=== PATIENT | female | born 1985 | race Caucasian/White ===

== ENCOUNTER 2016-10-11 00:02 | Emergency (ER) | payer SELFPAY ==
[~2016-10-11] VITALS: Wt 54.0 kg
[~2016-10-11 00:02] MED LIST: AMOXICILLIN200 MG PO; AMOXICILLIN500 MG PO; AMOXIL500 MG PO; ANAPROX DS550 MG PO; ATIVAN1 MG PO; AUGMENTIN 500 M1 TAB PO; AUGMENTIN 875875 MG PO; AVPAK AZITHROM250 M1 PO; BACTRIM DS 8001 TA1 PO; CIPRO250 MG PO; CIPROFLOXACIN500 MG PO; CLEOCIN150 MG PO; CLINDAMYCIN HC300 MG PO; DICLOFENAC POTA50 MG PO; DIFLUCAN150 MG PO; FLEXERIL10 MG PO; FLEXERIL5 MG PO; HYDROCODONE BIT1 T11 PO; HYDROXYZINE HCL25 MG PO; K-DUR 20MEQ20 MEQ PO; KETOROLAC10 MG PO; LIDEX 0.05% CRE15 GM T; MACROBID100 M1 PO; MEDROL DOSEPAK4 MG PO; MIRENA52 MG IU; MOTRIN600 MG PO; MOTRIN800 MG PO; MULTIPLE VITAM1 EACH PO; NAPROSYN500 MG PO; NEURONTIN100 MG PO; NKHM; NORCO 325 MG-101 TAB PO; PEN-VEE K500 MG PO; PENICILLIN-VK500 MG PO; PERIDEX118 ML MM; POTASSIUM CHLO10 ME4 PO; PREDNICOT20 MG PO; PRENTAL 1 PLUS1 TAB PO; PROZAC10 MG PO; PYRIDIUM200 M1 PO; TRAMADOL HCL50 MG PO; ULTRAM50 MG PO; VIBRAMYCIN100 MG PO; VICODIN 5/500 505 MG PO; ZITHROMAX250 MG PO; ZOFRAN2 MG/ML; ZOFRAN4 MG PO; ZOLOFT50 MG PO; Zofran4 MG PO
[2016-10-11 00:28] LABS: BILIRUBIN NEGATIVE (NEGATIVE); BLOOD TRACE-INTACT (NEGATIVE); CLARITY CLOUDY (CLEAR); COLOR YELLOW (YELLOW); GLUCOSE NEGATIVE (NEGATIVE); KETONE NEGATIVE (NEGATIVE); LEUKO ESTERASE NEGATIVE (NEGATIVE); NITRITE NEGATIVE (NEGATIVE); PH 5.5 (5.0-9.0); PROTEIN NEGATIVE (NEGATIVE); SPECIFIC GRAVITY 1.015 (1.005-1.030); UROBILINOGEN 0.2 E.U./dl (0.2-1.0)
[2016-10-11 00:32] LABS: BASO # 0.1 10*3/uL (0.0-0.1); BASO % 0.6 % (0.0-1.0); EOS # 0.4 10*3/uL (0.0-0.4); HEMATOCRIT 38.3 % (37.0-47.0); HEMOGLOBIN 13.1 g/dl (12.0-16.0); LYMPH % 33.7 % (27.0-41.0); MEAN CELL VOLUME 99.2 fl (81.0-99.0); MEAN CORPUSCULAR HGB 33.9 pg (27.0-31.0); MEAN CORPUSCULAR HGB CONC 34.2 g/dl (33.0-37.0); MEAN PLATELET VOLUME 8.5 fl (9.6-12.3); MONO # 0.5 10*3/uL (0.1-1.0); MONO % 5.7 % (3.0-9.0); NEUT % 55.8 % (47.0-73.0); PLATELET COUNT AUTOMATED 408 10*3/uL (130-400); RED BLOOD COUNT 3.86 10*6/uL (4.10-5.10); RED CELL DISTRI WIDTH 12.3 % (0-14.5); WHITE BLOOD COUNT 8.9 10*3/uL (4.8-10.8)
[2016-10-11 00:42] LABS: BACTERIA 1+; EPITHELIAL CELLS 0-2; URINE REFLEX COMMENT NO (NO); WBC 0-2 wbc/hpf (0-5)
[2016-10-11 00:49] LABS: ALKALINE PHOSPHATASE 55 U/L (45-117); BILIRUBIN, TOTAL 0.4 mg/dl (0.2-1.0); BUN 10 mg/dl (7-24); C-REACTIVE PROTEIN < 0.29 MG/DL (0-0.3); CARBON DIOXIDE 28 mmol/L (21-32); CHLORIDE 102 mmol/L (98-107); EST GLOM FILT AFRICAN AMERICAN > 60 ml/min; GLUCOSE 88 mg/dL (65-99); POTASSIUM 3.6 mmol/L (3.5-5.1); SGOT/AST 13 IU/L (3-35); SGPT/ALT 23 U/L (12-78); SODIUM 140 mmol/L (136-145); TOTAL PROTEIN 7.1 gm/dL (6.4-8.2)
[2016-10-11] MEDS ORDERED: VIBRAMYCIN100 MG PO (00:53)
== END 2016-10-11 01:14 | disposition home or self-care (01) ==
LOC: ED 00:02
PROVIDERS: Physician Assistant
DX: R10.2 Pelvic and perineal pain (principal); F17.200 Nicotine dependence, unspecified, uncomplicated

== ENCOUNTER 2017-01-03 23:34 | Emergency (ER) | payer SELFPAY ==
[~2017-01-03] VITALS: Ht 157.4 cm; Wt 55.8 kg
[2017-01-04] MEDS ORDERED: ZITHROMAX250 MG PO (00:04)
[2017-01-04] MEDS ORDERED: KETOROLAC10 MG PO (00:04)
[2017-01-04] MEDS ORDERED: ROBITUSSIN AC 110 ML PO (00:04)
== END 2017-01-04 00:29 | disposition home or self-care (01) ==
LOC: ED 23:34
DX: J40 Bronchitis, not specified as acute or chronic (principal); J32.9 Chronic sinusitis, unspecified; F17.200 Nicotine dependence, unspecified, uncomplicated

== ENCOUNTER 2017-02-27 16:22 | Emergency (ER) | payer SELFPAY ==
[~2017-02-27] VITALS: Ht 157.4 cm; Wt 55.8 kg
[~2017-02-27 16:22] MED LIST changes: +ROBITUSSIN AC 110 ML PO
== END 2017-02-27 16:53 | disposition home or self-care (01) ==
LOC: ED 16:22
DX: M25.531 Pain in right wrist (principal); F17.200 Nicotine dependence, unspecified, uncomplicated

== ENCOUNTER 2017-05-20 16:25 | Emergency (ER) | payer OTHER ==
[~2017-05-20] VITALS: Ht 157.4 cm; Wt 54.4 kg
--- NOTE | ~2017-05-20 | EKG ---
[place], [place] ELECTROCARDIOGRAM REPORT NAME: LIU BRYANT UNIT #: [id number] ROOM: DOCTOR: MARIA R ADAMSON MD BIRTHDATE: [birth year] DOS: 05/20/2017 TIME: 1728 hours. Normal sinus rhythm at 82 beats per minute. First-degree heart block. An abnormal ECG. No previous tracing is available for comparison. MARIA R ADAMSON MD CM:EKGRPT:ELECTROCARDIOGRAM REPORT [id number] MARIA R ADAMSON MD
[2017-05-20 17:26] LABS: BASO # 0.1 10*3/uL (0.0-0.1); BASO % 0.8 % (0.0-1.0); EOS # 0.8 10*3/uL (0.0-0.4); EOS % 8.9 % (1.0-4.0); HEMATOCRIT 38.1 % (37.0-47.0); HEMOGLOBIN 12.9 g/dl (12.0-16.0); LYMPH # 3.5 10*3/uL (1.3-4.4); LYMPH % 38.3 % (27.0-41.0); MEAN CELL VOLUME 100.8 fl (81.0-99.0); MEAN CORPUSCULAR HGB 34.1 pg (27.0-31.0); MEAN CORPUSCULAR HGB CONC 33.9 g/dl (33.0-37.0); MONO # 0.8 10*3/uL (0.1-1.0); MONO % 8.3 % (3.0-9.0); NEUT % 43.6 % (47.0-73.0); PLATELET COUNT AUTOMATED 386 10*3/uL (130-400); RED BLOOD COUNT 3.78 10*6/uL (4.10-5.10); RED CELL DISTRI WIDTH 12.2 % (0-14.5); WHITE BLOOD COUNT 9.1 10*3/uL (4.8-10.8)
[2017-05-20 17:44] LABS: ALBUMIN 3.7 gm/dl (3.1-4.5); ALKALINE PHOSPHATASE 47 U/L (45-117); BUN 14 mg/dl (7-24); CHLORIDE 107 mmol/L (98-107); CREATININE 0.49 mg/dL (0.55-1.02); LIPASE 243 U/L (73-393); POTASSIUM 3.8 mmol/L (3.5-5.1); SGOT/AST 17 IU/L (3-35); SGPT/ALT 28 U/L (12-78); SODIUM 140 mmol/L (136-145)
[2017-05-20 17:45] LABS: TROPONIN I < 0.015 ng/ml (<0.045)
[2017-05-20] MEDS ORDERED: NAPROSYN500 MG PO (20:09)
== END 2017-05-20 20:22 | disposition home or self-care (01) ==
LOC: ED 16:25
PROVIDERS: Physician Assistant
DX: R07.89 Other chest pain (principal); F17.200 Nicotine dependence, unspecified, uncomplicated; Z79.899 Other long term (current) drug therapy

== ENCOUNTER 2017-08-03 08:04 | Emergency (ER) | payer OTHER ==
[~2017-08-03] VITALS: Ht 157.4 cm; Wt 52.6 kg
[2017-08-03 08:55] LABS: BILIRUBIN NEGATIVE (NEGATIVE); BLOOD TRACE-LYSED (NEGATIVE); CLARITY SL CLOUDY (CLEAR); COLOR YELLOW (YELLOW); GLUCOSE NEGATIVE (NEGATIVE); KETONE NEGATIVE (NEGATIVE); LEUKO ESTERASE NEGATIVE (NEGATIVE); NITRITE NEGATIVE (NEGATIVE); PH 6.5 (5.0-9.0); SPECIFIC GRAVITY 1.015 (1.005-1.030); UROBILINOGEN 0.2 E.U./dl (0.2-1.0)
[2017-08-03 09:17] LABS: BACTERIA 1+; RBC 0-2 rbc/hpf (0-2); WBC 0-2 wbc/hpf (0-5)
[2017-08-03] MEDS ORDERED: PREDNISONE50 MG PO (09:30)
[2017-08-03] MEDS ORDERED: DOXYCYCLINE100 M3 PO (09:30)
== END 2017-08-03 09:37 | disposition home or self-care (01) ==
LOC: ED 08:04
PROVIDERS: Emergency Medicine
DX: J20.9 Acute bronchitis, unspecified (principal)

== ENCOUNTER 2017-10-09 11:48 | Emergency (ER) | payer OTHER ==
[~2017-10-09] VITALS: Wt 52.2 kg
[~2017-10-09 11:48] MED LIST changes: +DOXYCYCLINE100 M3 PO; +PREDNISONE50 MG PO
== END 2017-10-09 12:48 | disposition home or self-care (01) ==
LOC: ED 11:48
DX: S50.11XA Contusion of right forearm, initial encounter (principal); W22.8XXA Striking against or struck by other objects, initial encounter; Y93.89 Activity, other specified; Y92.89 Other specified places as the place of occurrence of the external cause; Y99.8 Other external cause status

== ENCOUNTER 2017-10-17 16:09 | Emergency (ER) | payer OTHER ==
[~2017-10-17] VITALS: Ht 157.4 cm; Wt 52.2 kg
[2017-10-17] MEDS ORDERED: PROZAC10 MG PO (16:11)
[2017-10-17] MEDS ORDERED: ABILIFY2 MG PO (16:11)
== END 2017-10-17 18:19 | disposition home or self-care (01) ==
LOC: ED 16:09
DX: M25.531 Pain in right wrist (principal); Z79.899 Other long term (current) drug therapy

== ENCOUNTER 2018-01-11 03:47 | Emergency (ER) | payer OTHER ==
[~2018-01-11] VITALS: Ht 157.4 cm; Wt 61.2 kg
[~2018-01-11 03:47] MED LIST changes: +ABILIFY2 MG PO; +CYCLOBENZAPRINE10 MG PO; +LIDOCAINE PAIN1 EACH T; +Motrin,Rufen800 MG PO; +Orphenadrine C100 MG PO; +PREDNISONE10 MG PO
[2018-01-11 04:02] LABS: BILIRUBIN NEGATIVE (NEGATIVE); BLOOD NEGATIVE (NEGATIVE); CLARITY CLEAR (CLEAR); COLOR YELLOW (YELLOW); GLUCOSE NEGATIVE (NEGATIVE); KETONE NEGATIVE (NEGATIVE); LEUKO ESTERASE NEGATIVE (NEGATIVE); NITRITE NEGATIVE (NEGATIVE); PH 7.5 (5.0-9.0); UROBILINOGEN 0.2 E.U./dl (0.2-1.0)
[2018-01-11 04:16] LABS: BASO # 0.1 10*3/uL (0.0-0.1); BASO % 0.7 % (0.0-1.0); EOS # 0.6 10*3/uL (0.0-0.4); EOS % 6.8 % (1.0-4.0); HEMATOCRIT 36.5 % (37.0-47.0); HEMOGLOBIN 12.4 g/dl (12.0-16.0); LYMPH # 3.4 10*3/uL (1.3-4.4); LYMPH % 39.1 % (27.0-41.0); MEAN CELL VOLUME 100.6 fl (81.0-99.0); MEAN CORPUSCULAR HGB 34.2 pg (27.0-31.0); MEAN PLATELET VOLUME 8.9 fl (9.6-12.3); MONO # 0.7 10*3/uL (0.1-1.0); MONO % 7.6 % (3.0-9.0); NEUT % 45.6 % (47.0-73.0); PLATELET COUNT AUTOMATED 438 10*3/uL (130-400); RED BLOOD COUNT 3.63 10*6/uL (4.10-5.10); RED CELL DISTRI WIDTH 12.3 % (0-14.5); WHITE BLOOD COUNT 8.8 10*3/uL (4.8-10.8)
[2018-01-11 04:17] LABS: BACTERIA 1+; EPITHELIAL CELLS 0-2
[2018-01-11 04:32] LABS: ALBUMIN 3.6 gm/dl (3.1-4.5); ALKALINE PHOSPHATASE 48 U/L (45-117); BUN 12 mg/dl (7-24); CHLORIDE 106 mmol/L (98-107); CREATININE 0.66 mg/dL (0.55-1.02); LIPASE 258 U/L (73-393); POTASSIUM 3.5 mmol/L (3.5-5.1); SGOT/AST 21 IU/L (3-35); SGPT/ALT 27 U/L (12-78); SODIUM 140 mmol/L (136-145)
[2018-01-11 04:35] LABS: B-hCG (QUALITATIVE) NEGATIVE (NEGATIVE)
[2018-01-11] MEDS ORDERED: ZOFRAN ODT4 MG SL (05:04)
[2018-01-11] MEDS ORDERED: MACROBID100 M1 PO (05:04)
[2018-01-11] MEDS ORDERED: PEPCID40 MG PO (05:04)
[2018-02-27] MEDS ORDERED: NAPROSYN500 MG PO (19:05)
== END 2018-01-11 05:20 | disposition home or self-care (01) ==
LOC: ED 03:47
PROVIDERS: Emergency Medicine
DX: N39.0 Urinary tract infection, site not specified (principal); K29.00 Acute gastritis without bleeding; R11.2 Nausea with vomiting, unspecified; Z79.899 Other long term (current) drug therapy

== ENCOUNTER 2018-05-15 16:46 | Emergency (ER) | payer OTHER ==
[~2018-05-15] VITALS: Wt 61.2 kg
--- NOTE | ~2018-05-15 | EKG ---
[place], [place] ELECTROCARDIOGRAM REPORT NAME: LIU BRYANT UNIT #: [id number] ROOM: DOCTOR: EPIPHANY DRAFT REPORT BIRTHDATE: [birth year] [facility] Test Date: 2018-05-15 Test Time: 17:26:09 Pat Name: LIU BRYANT Department: Room: Gender: F It Support Consultant: 17 : 1985 Requested By: YUMI AMEZQUITA DNP Order Number: [id number] Reading MD: Pranav Murray MD Measurements Intervals [place] Rate: 83 P: 42 MS: 216 QRS: 84 QRSD: 99 T: 26 QT: 351 QTc: 413 Interpretive Statements Sinus rhythm Prolonged MS interval Baseline wander in lead(s) V6 Electronically Signed On 05-16-2018 4:15:48 PST by Pranav Murray MD CM:EKGRPT:ELECTROCARDIOGRAM REPORT [id number] YUMI HANSEN DRAFT REPORT YUMI AMEZQUITA DNP
[~2018-05-15 16:46] MED LIST changes: +PEPCID40 MG PO; +ZOFRAN ODT4 MG SL
[2018-05-15 17:31] LABS: BASO # 0.1 10*3/uL (0.0-0.1); BASO % 0.4 % (0.0-1.0); EOS # 0.5 10*3/uL (0.0-0.4); EOS % 4.4 % (1.0-4.0); HEMATOCRIT 38.5 % (37.0-47.0); HEMOGLOBIN 13.4 g/dl (12.0-16.0); LYMPH # 2.7 10*3/uL (1.3-4.4); LYMPH % 23.6 % (27.0-41.0); MEAN CELL VOLUME 98.2 fl (81.0-99.0); MEAN CORPUSCULAR HGB 34.2 pg (27.0-31.0); MEAN CORPUSCULAR HGB CONC 34.8 g/dl (33.0-37.0); MEAN PLATELET VOLUME 9.2 fl (9.6-12.3); MONO # 0.8 10*3/uL (0.1-1.0); MONO % 7.1 % (3.0-9.0); NEUT # 7.2 10*3/uL (2.3-7.9); NEUT % 64.2 % (47.0-73.0); PLATELET COUNT AUTOMATED 398 10*3/uL (130-400); RED BLOOD COUNT 3.92 10*6/uL (4.10-5.10); RED CELL DISTRI WIDTH 11.9 % (0-14.5); WHITE BLOOD COUNT 11.3 10*3/uL (4.8-10.8)
[2018-05-15 17:46] LABS: ALBUMIN 3.6 gm/dl (3.1-4.5); ALKALINE PHOSPHATASE 46 U/L (45-117); BUN 12 mg/dl (7-24); CHLORIDE 111 mmol/L (98-107); CREATININE 0.54 mg/dL (0.55-1.02); POTASSIUM 3.3 mmol/L (3.5-5.1); SGOT/AST 11 IU/L (3-35); SGPT/ALT 16 U/L (12-78); SODIUM 141 mmol/L (136-145); TOTAL PROTEIN 6.7 gm/dL (6.4-8.2)
[2018-05-15] MEDS ORDERED: ZOFRAN4 MG PO (18:26)
== END 2018-05-15 18:27 | disposition home or self-care (01) ==
LOC: ED 16:46
PROVIDERS: Nurse Practitioner Family
DX: J06.9 Acute upper respiratory infection, unspecified (principal); K52.9 Noninfective gastroenteritis and colitis, unspecified; Z79.899 Other long term (current) drug therapy

== ENCOUNTER 2018-06-01 16:02 | Emergency (ER) | payer OTHER ==
[~2018-06-01] VITALS: Ht 157.4 cm; Wt 59.0 kg
[2018-06-01] MEDS ORDERED: NAPROSYN500 MG PO (16:19)
[2018-06-01] MEDS ORDERED: PENICILLIN VK500 MG PO (16:19)
== END 2018-06-01 16:37 | disposition home or self-care (01) ==
LOC: ED 16:02
DX: K04.7 Periapical abscess without sinus (principal); Z79.899 Other long term (current) drug therapy

== ENCOUNTER 2018-09-26 00:31 | Emergency (ER) | payer OTHER ==
[~2018-09-26] VITALS: Ht 154.9 cm; Wt 59.4 kg
[~2018-09-26 00:31] MED LIST changes: +PENICILLIN VK500 MG PO; +PRILOSEC20 M1 PO
== END 2018-09-26 01:44 | disposition home or self-care (01) ==
LOC: ED 00:31
DX: S60.221A Contusion of right hand, initial encounter (principal); Z79.899 Other long term (current) drug therapy; W22.03XA Walked into furniture, initial encounter; Y93.89 Activity, other specified; Y92.89 Other specified places as the place of occurrence of the external cause; Y99.9 Unspecified external cause status

== ENCOUNTER 2018-12-27 23:21 | Emergency (ER) | payer OTHER ==
[~2018-12-27] VITALS: Ht 157.4 cm; Wt 59.0 kg
[2018-12-28] MEDS ORDERED: Motrin,Rufen800 MG PO (00:54)
[2018-12-28] MEDS ORDERED: CYCLOBENZAPRINE5 M3 PO (00:54)
== END 2018-12-28 01:03 | disposition home or self-care (01) ==
LOC: ED 23:21
DX: M54.16 Radiculopathy, lumbar region (principal); Z79.899 Other long term (current) drug therapy; Z79.2 Long term (current) use of antibiotics

== ENCOUNTER 2019-03-12 02:44 | Emergency (ER) | payer OTHER ==
[~2019-03-12] VITALS: Ht 157.4 cm; Wt 61.2 kg
[~2019-03-12 02:44] MED LIST changes: +CYCLOBENZAPRINE5 M3 PO
[2019-03-12] MEDS ORDERED: CYCLOBENZAPRINE10 MG PO (04:27)
== END 2019-03-12 04:51 | disposition home or self-care (01) ==
LOC: ED 02:44
DX: S33.5XXA Sprain of ligaments of lumbar spine, initial encounter (principal); S39.012A Strain of muscle, fascia and tendon of lower back, initial encounter; F17.200 Nicotine dependence, unspecified, uncomplicated; Z79.899 Other long term (current) drug therapy; X50.1XXA Overexertion from prolonged static or awkward postures, initial encounter; Y93.I9 Activity, other involving external motion; Y92.093 Driveway of other non-institutional residence as the place of occurrence of the external cause; Y99.8 Other external cause status

== ENCOUNTER 2019-04-09 22:52 | Emergency (ER) | payer OTHER ==
[~2019-04-09] VITALS: Ht 157.4 cm; Wt 60.3 kg
[2019-04-10] MEDS ORDERED: MEDROL DOSEPAK4 MG PO (00:07)
== END 2019-04-10 00:15 | disposition home or self-care (01) ==
LOC: ED 22:52
DX: J20.9 Acute bronchitis, unspecified (principal); F17.200 Nicotine dependence, unspecified, uncomplicated; Z79.899 Other long term (current) drug therapy

== ENCOUNTER 2019-06-19 04:51 | Emergency (ER) | payer OTHER ==
[~2019-06-19] VITALS: Ht 157.4 cm; Wt 59.0 kg
== END 2019-06-19 07:11 | disposition home or self-care (01) ==
LOC: ED 04:51
DX: S16.1XXA Strain of muscle, fascia and tendon at neck level, initial encounter (principal); S09.90XA Unspecified injury of head, initial encounter; F41.9 Anxiety disorder, unspecified; F32.9 Major depressive disorder, single episode, unspecified; F17.200 Nicotine dependence, unspecified, uncomplicated; Z79.899 Other long term (current) drug therapy; X58.XXXA Exposure to other specified factors, initial encounter; Y93.89 Activity, other specified; Y92.89 Other specified places as the place of occurrence of the external cause; Y99.8 Other external cause status

== ENCOUNTER 2019-10-16 17:41 | Emergency (ER) | payer OTHER ==
[~2019-10-16] VITALS: Ht 157.4 cm; Wt 56.7 kg
== END 2019-10-16 20:12 | disposition home or self-care (01) ==
LOC: ED 17:41
DX: S60.211A Contusion of right wrist, initial encounter (principal); Z79.899 Other long term (current) drug therapy; Z87.891 Personal history of nicotine dependence; W01.198A Fall on same level from slipping, tripping and stumbling with subsequent striking against other object, initial encounter; Y93.89 Activity, other specified; Y92.89 Other specified places as the place of occurrence of the external cause; Y99.8 Other external cause status

== ENCOUNTER 2019-11-01 16:46 | Emergency (ER) | payer OTHER ==
[~2019-11-01] VITALS: Ht 157.4 cm; Wt 57.2 kg
== END 2019-11-01 17:51 | disposition home or self-care (01) ==
LOC: ED 16:46
DX: S69.91XA Unspecified injury of right wrist, hand and finger(s), initial encounter (principal); F17.200 Nicotine dependence, unspecified, uncomplicated; Z79.899 Other long term (current) drug therapy; W22.8XXA Striking against or struck by other objects, initial encounter; Y93.89 Activity, other specified; Y92.89 Other specified places as the place of occurrence of the external cause; Y99.8 Other external cause status

== ENCOUNTER 2020-01-24 14:37 | Emergency (ER) | payer OTHER ==
[~2020-01-24] VITALS: Ht 157.4 cm; Wt 56.7 kg
[2020-01-24] MEDS ORDERED: AMOXICILLIN500 M2 PO (14:53)
[2020-01-24] MEDS ORDERED: Motrin,Rufen800 MG PO (14:53)
== END 2020-01-24 15:07 | disposition home or self-care (01) ==
LOC: ED 14:37
DX: K04.7 Periapical abscess without sinus (principal); Z79.899 Other long term (current) drug therapy

== ENCOUNTER 2020-02-08 02:21 | Emergency (ER) | payer OTHER ==
[~2020-02-08] VITALS: Ht 157.4 cm; Wt 59.0 kg
[~2020-02-08 02:21] MED LIST changes: +AMOXICILLIN500 M2 PO
[2020-02-08] MEDS ORDERED: AUGMENTIN 875875 MG PO (04:09)
== END 2020-02-08 04:25 | disposition home or self-care (01) ==
LOC: ED 02:21
DX: J40 Bronchitis, not specified as acute or chronic (principal); J32.9 Chronic sinusitis, unspecified

== ENCOUNTER 2020-02-27 18:06 | Emergency (ER) | payer OTHER ==
[~2020-02-27] VITALS: Ht 157.4 cm; Wt 59.0 kg
[2020-02-27] MEDS ORDERED: Motrin,Rufen800 MG PO (19:47)
== END 2020-02-27 19:46 | disposition home or self-care (01) ==
LOC: ED 18:06
DX: S46.911A Strain of unspecified muscle, fascia and tendon at shoulder and upper arm level, right arm, initial encounter (principal); X58.XXXA Exposure to other specified factors, initial encounter; Y93.89 Activity, other specified; Y92.89 Other specified places as the place of occurrence of the external cause; Y99.8 Other external cause status

== ENCOUNTER 2020-04-27 22:13 | Emergency (ER) | payer OTHER ==
[~2020-04-27] VITALS: Ht 157.4 cm; Wt 59.0 kg
== END 2020-04-27 22:37 | disposition home or self-care (01) ==
LOC: ED 22:13
DX: R53.83 Other fatigue (principal); R43.2 Parageusia; R43.8 Other disturbances of smell and taste; F32.9 Major depressive disorder, single episode, unspecified; F41.9 Anxiety disorder, unspecified; Z20.828 Contact with and (suspected) exposure to other viral communicable diseases; Z79.2 Long term (current) use of antibiotics; Z79.899 Other long term (current) drug therapy; Z87.891 Personal history of nicotine dependence

== ENCOUNTER → 2020-07-04 | Outpatient (CLI) | payer OTHER | END | disposition home or self-care (01) | LOC: COVID19 14:40 | PROVIDERS: ATTEND Internal Medicine | DX: Z20.822 Contact with and (suspected) exposure to COVID-19 (principal) ==

== ENCOUNTER 2020-08-06 23:12 | Emergency (ER) | payer OTHER ==
[~2020-08-06] VITALS: Ht 157.4 cm; Wt 63.0 kg
[2020-08-07] MEDS ORDERED: MEDROL DOSEPAK4 MG PO (02:55)
[2020-08-07] MEDS ORDERED: CYCLOBENZAPRINE10 MG PO (02:55)
== END 2020-08-07 03:00 | disposition home or self-care (01) ==
LOC: ED 23:12
DX: S39.012A Strain of muscle, fascia and tendon of lower back, initial encounter (principal); S29.012A Strain of muscle and tendon of back wall of thorax, initial encounter; Z98.890 Other specified postprocedural states; X58.XXXA Exposure to other specified factors, initial encounter; Y93.89 Activity, other specified; Y92.89 Other specified places as the place of occurrence of the external cause; Y99.8 Other external cause status

== ENCOUNTER 2020-09-01 23:27 | Emergency (ER) | payer OTHER ==
[~2020-09-01] VITALS: Ht 172.7 cm; Wt 68.0 kg
[2020-09-01] MEDS ORDERED: NAPROSYN500 MG PO (23:41)
[2020-09-01] MEDS ORDERED: METHOCARBAMOL750 M1 PO (23:41)
== END 2020-09-01 23:48 | disposition home or self-care (01) ==
LOC: ED 23:27
DX: S29.012A Strain of muscle and tendon of back wall of thorax, initial encounter (principal); Z79.899 Other long term (current) drug therapy; X58.XXXA Exposure to other specified factors, initial encounter; Y93.89 Activity, other specified; Y92.89 Other specified places as the place of occurrence of the external cause; Y99.8 Other external cause status

== ENCOUNTER 2020-09-08 14:58 | Emergency (ER) | payer OTHER ==
[~2020-09-08] VITALS: Ht 157.4 cm; Wt 54.4 kg
[~2020-09-08 14:58] MED LIST changes: +METHOCARBAMOL750 M1 PO
[2020-09-08] MEDS ORDERED: MEDROL DOSEPAK4 MG PO (16:52)
== END 2020-09-08 16:54 | disposition home or self-care (01) ==
LOC: ED 14:58
DX: M54.41 Lumbago with sciatica, right side (principal); M54.42 Lumbago with sciatica, left side; Z79.899 Other long term (current) drug therapy

== ENCOUNTER 2020-11-12 20:56 | Emergency (ER) | payer OTHER ==
[~2020-11-12] VITALS: Ht 157.4 cm; Wt 59.9 kg
[2020-11-12 21:16] LABS: BASO % 0.6 % (0.0-1.0); EOS # 0.1 10*3/uL (0.0-0.4); EOS % 1.2 % (1.0-4.0); HEMATOCRIT 40.3 % (37.0-47.0); LYMPH # 1.9 10*3/uL (1.3-4.4); MEAN CELL VOLUME 96.6 fl (81.0-99.0); MEAN CORPUSCULAR HGB 32.9 pg (27.0-31.0); MEAN PLATELET VOLUME 8.8 fl (9.6-12.3); MONO # 0.4 10*3/uL (0.1-1.0); MONO % 6.4 % (3.0-9.0); NEUT # 4.4 10*3/uL (2.3-7.9); NEUT % 63.7 % (47.0-73.0); PLATELET COUNT AUTOMATED 457 10*3/uL (130-400); RED BLOOD COUNT 4.17 10*6/uL (4.10-5.10); RED CELL DISTRI WIDTH 11.9 % (0-14.5); WHITE BLOOD COUNT 6.9 10*3/uL (4.8-10.8)
[2020-11-12 21:33] LABS: ALBUMIN 4.3 gm/dl (3.1-4.5); BUN 8 mg/dl (7-24); CHLORIDE 109 mmol/L (98-107); CREATININE 0.48 mg/dL (0.55-1.02); POTASSIUM 3.7 mmol/L (3.5-5.1); SGOT/AST 13 IU/L (3-35); SGPT/ALT 20 U/L (12-78); SODIUM 136 mmol/L (136-145); TOTAL PROTEIN 7.5 gm/dL (6.4-8.2)
[2020-11-12 21:36] LABS: ALKALINE PHOSPHATASE 41 U/L (45-117)
[2020-11-12 21:38] LABS: TROPONIN I < 0.015 ng/ml (<0.045)
== END 2020-11-12 21:55 | disposition home or self-care (01) ==
LOC: ED 20:56
PROVIDERS: Internal Medicine
DX: F41.9 Anxiety disorder, unspecified (principal)

== ENCOUNTER 2021-01-05 17:36 | Emergency (ER) | payer OTHER ==
[~2021-01-05] VITALS: Ht 157.4 cm; Wt 59.0 kg
[2021-01-06] MEDS ORDERED: Motrin,Rufen800 MG PO (00:07)
[2021-01-06] MEDS ORDERED: MEDROL DOSEPAK4 MG PO (00:07)
== END 2021-01-06 00:34 | disposition home or self-care (01) ==
LOC: ED 17:36
DX: S16.1XXA Strain of muscle, fascia and tendon at neck level, initial encounter (principal); X50.9XXA Other and unspecified overexertion or strenuous movements or postures, initial encounter; Y93.89 Activity, other specified; Y92.89 Other specified places as the place of occurrence of the external cause; Y99.8 Other external cause status

== ENCOUNTER 2021-03-10 09:38 | Emergency (ER) | payer OTHER ==
[~2021-03-10] VITALS: Ht 157.4 cm; Wt 59.0 kg
[2021-03-10] MEDS ORDERED: AMOXICILLIN875 MG PO (11:12)
[2021-03-10] MEDS ORDERED: Motrin,Rufen800 MG PO (11:12)
== END 2021-03-10 11:37 | disposition home or self-care (01) ==
LOC: ED 09:38
DX: K08.89 Other specified disorders of teeth and supporting structures (principal); Z79.899 Other long term (current) drug therapy

== ENCOUNTER 2021-03-22 19:34 | Emergency (ER) | payer OTHER ==
[~2021-03-22] VITALS: Ht 157.4 cm; Wt 59.0 kg
[~2021-03-22 19:34] MED LIST changes: +AMOXICILLIN875 MG PO
== END 2021-03-22 22:23 | disposition home or self-care (01) ==
LOC: ED 19:34
DX: J06.9 Acute upper respiratory infection, unspecified (principal); Z20.822 Contact with and (suspected) exposure to COVID-19

== ENCOUNTER 2021-06-17 17:54 | Emergency (ER) | payer OTHER ==
[~2021-06-17] VITALS: Wt 54.4 kg
[2021-06-17] MEDS ORDERED: FLUOXETINE HYDR20 M1 PO (18:14)
[2021-06-17] MEDS ORDERED: PREDNISONE20 M1 PO (20:11)
[2021-06-17] MEDS ORDERED: METHOCARBAMOL500 M1 PO (20:11)
== END 2021-06-17 20:38 | disposition home or self-care (01) ==
LOC: ED 17:54
DX: M54.32 Sciatica, left side (principal); Z79.899 Other long term (current) drug therapy

== ENCOUNTER 2021-07-31 18:32 | Emergency (ER) | payer OTHER ==
[~2021-07-31] VITALS: Ht 157.4 cm; Wt 60.3 kg
[~2021-07-31 18:32] MED LIST changes: +FLUOXETINE HYDR20 M1 PO; +METHOCARBAMOL500 M1 PO; +PREDNISONE20 M1 PO
[2021-07-31 20:12] LABS: BASO % 0.6 % (0.0-1.0); EOS # 0.1 10*3/uL (0.0-0.4); EOS % 1.4 % (1.0-4.0); HEMATOCRIT 37.9 % (37.0-47.0); LYMPH # 1.7 10*3/uL (1.3-4.4); LYMPH % 27.4 % (27.0-41.0); MEAN CELL VOLUME 95.5 fl (81.0-99.0); MEAN CORPUSCULAR HGB 32.7 pg (27.0-31.0); MEAN CORPUSCULAR HGB CONC 34.3 g/dl (33.0-37.0); MONO # 0.5 10*3/uL (0.1-1.0); MONO % 7.5 % (3.0-9.0); NEUT # 3.9 10*3/uL (2.3-7.9); NEUT % 62.9 % (47.0-73.0); PLATELET COUNT AUTOMATED 422 10*3/uL (130-400); RED BLOOD COUNT 3.97 10*6/uL (4.10-5.10); RED CELL DISTRI WIDTH 11.7 % (0-14.5); WHITE BLOOD COUNT 6.3 10*3/uL (4.8-10.8)
[2021-07-31 20:29] LABS: ALKALINE PHOSPHATASE 41 U/L (45-117); BUN 12 mg/dl (7-24); CHLORIDE 107 mmol/L (98-107); CREATININE 0.48 mg/dL (0.55-1.02); SGOT/AST 13 IU/L (3-35); SGPT/ALT 19 U/L (12-78); SODIUM 139 mmol/L (136-145); TOTAL PROTEIN 6.9 gm/dL (6.4-8.2)
[2021-07-31] MEDS ORDERED: Motrin,Rufen800 MG PO (22:43)
== END 2021-07-31 22:45 | disposition home or self-care (01) ==
LOC: ED 18:32
PROVIDERS: Nurse Practitioner Family
DX: S66.812A Strain of other specified muscles, fascia and tendons at wrist and hand level, left hand, initial encounter (principal); Z79.899 Other long term (current) drug therapy; X58.XXXA Exposure to other specified factors, initial encounter; Y93.89 Activity, other specified; Y92.89 Other specified places as the place of occurrence of the external cause; Y99.8 Other external cause status

== ENCOUNTER 2021-11-10 02:32 | Emergency (ER) | payer OTHER ==
[~2021-11-10] VITALS: Ht 157.4 cm; Wt 58.5 kg
[2021-11-10] MEDS ORDERED: PREDNISONE10 MG PO (02:55)
[2021-11-10] MEDS ORDERED: CYCLOBENZAPRINE10 MG PO (02:55)
== END 2021-11-10 02:45 | disposition home or self-care (01) ==
LOC: ED 02:32
DX: M54.59 Other low back pain (principal); F17.200 Nicotine dependence, unspecified, uncomplicated

== ENCOUNTER 2021-11-20 00:02 | Emergency (ER) | payer OTHER ==
[~2021-11-20] VITALS: Ht 162.5 cm; Wt 63.5 kg
[2021-11-20 00:38] LABS: HEMATOCRIT 39.9 % (37.0-47.0); MEAN CORPUSCULAR HGB CONC 33.3 g/dl (33.0-37.0); MEAN PLATELET VOLUME 8.4 fl (9.6-12.3); PLATELET COUNT AUTOMATED 531 10*3/uL (130-400); RED BLOOD COUNT 4.03 10*6/uL (4.10-5.10); RED CELL DISTRI WIDTH 11.9 % (0-14.5); WHITE BLOOD COUNT 10.2 10*3/uL (4.8-10.8)
[2021-11-20 00:40] LABS: MANUAL DIFF REFLEX YES
[2021-11-20 00:53] LABS: ALKALINE PHOSPHATASE 65 U/L (45-117); BUN 6 mg/dl (7-24); CHLORIDE 106 mmol/L (98-107); LIPASE 138 U/L (73-393); POTASSIUM 3.7 mmol/L (3.5-5.1); SGOT/AST 16 IU/L (3-35); SGPT/ALT 32 U/L (12-78); SODIUM 141 mmol/L (136-145); TOTAL PROTEIN 7.4 gm/dL (6.4-8.2)
[2021-11-20 01:19] LABS: BILIRUBIN Negative (Negative); BLOOD 2+ (Negative); CLARITY Clear (Clear); COLOR Yellow (Yellow); GLUCOSE Negative (Negative); KETONE Negative (Negative); LEUKO ESTERASE 2+ (Negative); NITRITE Negative (Negative); UROBILINOGEN 0.2 E.U./dl (0.0-1.0)
[2021-11-20 01:22] LABS: ATYPICAL LYMPHS 2 % (0-0); PLATELET SUFFICIENCY HIGH (NORMAL); TOTAL CELLS COUNTED 100 #CELLS
[2021-11-20 01:44] LABS: RBC 21-30 rbc/hpf (0-2)
[2021-11-20] MEDS ORDERED: CIPRO500 MG PO (04:26)
== END 2021-11-20 04:30 | disposition home or self-care (01) ==
LOC: ED 00:02
PROVIDERS: Emergency Medicine
DX: N39.0 Urinary tract infection, site not specified (principal); Z79.899 Other long term (current) drug therapy

== ENCOUNTER → 2021-12-14 | Outpatient (CLI) | payer OTHER ==
[~2021-12-14] MED LIST changes: +CIPRO500 MG PO
== END | disposition home or self-care (01) ==
LOC: RAD 07:59
PROVIDERS: ATTEND Family Medicine
DX: R10.33 Periumbilical pain (principal)

== ENCOUNTER 2022-03-02 11:44 | Emergency (ER) | payer OTHER ==
[~2022-03-02] VITALS: Ht 154.9 cm; Wt 53.1 kg
[2022-03-02 16:06] LABS: BASO % 0.6 % (0.0-1.0); EOS # 0.1 10*3/uL (0.0-0.4); EOS % 1.6 % (1.0-4.0); HEMATOCRIT 40.4 % (37.0-47.0); LYMPH # 2.8 10*3/uL (1.3-4.4); LYMPH % 43.1 % (27.0-41.0); MEAN CELL VOLUME 95.5 fl (81.0-99.0); MEAN CORPUSCULAR HGB 32.6 pg (27.0-31.0); MEAN CORPUSCULAR HGB CONC 34.2 g/dl (33.0-37.0); MEAN PLATELET VOLUME 8.6 fl (9.6-12.3); MONO # 0.5 10*3/uL (0.1-1.0); MONO % 8.1 % (3.0-9.0); NEUT % 46.3 % (47.0-73.0); PLATELET COUNT AUTOMATED 418 10*3/uL (130-400); RED BLOOD COUNT 4.23 10*6/uL (4.10-5.10); RED CELL DISTRI WIDTH 12.7 % (0-14.5); WHITE BLOOD COUNT 6.4 10*3/uL (4.8-10.8)
[2022-03-02 16:21] LABS: ALKALINE PHOSPHATASE 41 U/L (45-117); BUN 9 mg/dl (7-24); CHLORIDE 108 mmol/L (98-107); CREATININE 0.58 mg/dL (0.55-1.02); POTASSIUM 3.4 mmol/L (3.5-5.1); SGOT/AST 8 IU/L (3-35); SGPT/ALT 19 U/L (12-78); SODIUM 140 mmol/L (136-145); TOTAL PROTEIN 7.1 gm/dL (6.4-8.2)
== END 2022-03-02 16:55 | disposition home or self-care (01) ==
LOC: ED 11:44
PROVIDERS: Physician Assistant
DX: S39.012A Strain of muscle, fascia and tendon of lower back, initial encounter (principal); F17.200 Nicotine dependence, unspecified, uncomplicated; Z79.899 Other long term (current) drug therapy; V49.88XA Car occupant (driver) (passenger) injured in other specified transport accidents, initial encounter; Y93.89 Activity, other specified; Y92.413 State road as the place of occurrence of the external cause; Y99.9 Unspecified external cause status

== ENCOUNTER → 2022-05-31 | Outpatient (CLI) | payer OTHER | END | disposition home or self-care (01) | LOC: RAD 07:44 | PROVIDERS: ATTEND Nurse Practitioner Family | DX: S69.91XA Unspecified injury of right wrist, hand and finger(s), initial encounter (principal); X58.XXXA Exposure to other specified factors, initial encounter; Y93.89 Activity, other specified; Y92.89 Other specified places as the place of occurrence of the external cause; Y99.8 Other external cause status ==

== ENCOUNTER 2023-02-12 14:53 | Emergency (ER) | payer OTHER ==
[~2023-02-12] VITALS: Ht 157.4 cm; Wt 54.4 kg
[2023-02-12] MEDS ORDERED: ZANAFLEX4 MG PO (16:18)
[2023-02-12] MEDS ORDERED: MELOXICAM15 MG PO (16:18)
== END 2023-02-12 16:21 | disposition home or self-care (01) ==
LOC: ED 14:53
DX: M43.6 Torticollis (principal); F32.A Depression, unspecified; F41.9 Anxiety disorder, unspecified; Z98.890 Other specified postprocedural states; F17.290 Nicotine dependence, other tobacco product, uncomplicated

== ENCOUNTER 2023-03-30 23:18 | Emergency (ER) | payer OTHER ==
[~2023-03-30] VITALS: Ht 157.4 cm; Wt 54.4 kg
[~2023-03-30 23:18] MED LIST changes: +MELOXICAM15 MG PO; +ZANAFLEX4 MG PO
[2023-03-31] MEDS ORDERED: MECLIZINE HCL25 M2 PO (00:43)
== END 2023-03-31 00:52 | disposition home or self-care (01) ==
LOC: ED 23:18
DX: H81.10 Benign paroxysmal vertigo, unspecified ear (principal); F32.A Depression, unspecified; F41.9 Anxiety disorder, unspecified

== ENCOUNTER 2023-06-19 16:52 | Emergency (ER) | payer OTHER ==
[~2023-06-19] VITALS: Ht 157.4 cm; Wt 59.0 kg
[~2023-06-19 16:52] MED LIST changes: +MECLIZINE HCL25 M2 PO
[2023-06-19] MEDS ORDERED: DIAZEPAM 5 MG TAB PO ONE (17:15)
[2023-06-19] MEDS ORDERED: VALIUM5 MG PO (18:47)
[2023-06-19] MEDS ORDERED: CYCLOBENZAPRINE5 M3 PO (18:47)
[2023-06-19] MEDS ORDERED: PREDNISONE50 MG PO (18:47)
[2023-06-19] MEDS ORDERED: predniSONE 20 MG TAB PO ONE (18:50)
== END 2023-06-19 19:21 | disposition home or self-care (01) ==
LOC: ED 16:52
DX: M54.50 Low back pain, unspecified (principal); F32.A Depression, unspecified; F41.9 Anxiety disorder, unspecified

== ENCOUNTER 2023-08-14 18:34 | Emergency (ER) | payer OTHER ==
[~2023-08-14] VITALS: Ht 157.4 cm; Wt 59.0 kg
[~2023-08-14 18:34] MED LIST changes: +VALIUM5 MG PO
[2023-08-14] MEDS ORDERED: methylPREDNISolone sod succ 125 MG VIAL IM ONE (18:50)
[2023-08-14] MEDS ORDERED: Acetaminophen/Hydrocodone 5 MG/325 MG TABLET PO ONE (18:50)
[2023-08-14] MEDS ORDERED: PREDNISONE20 M1 PO (18:50)
== END 2023-08-14 18:53 | disposition home or self-care (01) ==
LOC: ED 18:34
DX: M54.50 Low back pain, unspecified (principal); F41.9 Anxiety disorder, unspecified; F32.A Depression, unspecified

== ENCOUNTER 2024-05-12 21:26 | Emergency (ER) | payer OTHER ==
[~2024-05-12] VITALS: Ht 157.4 cm; Wt 56.7 kg
[2024-05-12] MEDS ORDERED: Amoxicillin/Clavulanate Pota 875 MG TAB PO ONE (22:20)
[2024-05-12] MEDS ORDERED: AMOX-CLAV 875-1 EACH PO (22:24)
== END 2024-05-12 22:26 | disposition home or self-care (01) ==
LOC: ED 21:26
DX: J18.9 Pneumonia, unspecified organism (principal); Z20.822 Contact with and (suspected) exposure to COVID-19; M54.6 Pain in thoracic spine; F17.200 Nicotine dependence, unspecified, uncomplicated

== ENCOUNTER 2024-07-21 10:59 | Emergency (ER) | payer OTHER ==
[~2024-07-21] VITALS: Ht 157.4 cm; Wt 54.4 kg
[~2024-07-21 10:59] MED LIST changes: +AMOX-CLAV 875-1 EACH PO
== END 2024-07-21 13:44 | disposition home or self-care (01) ==
LOC: ED 10:59
DX: S93.401A Sprain of unspecified ligament of right ankle, initial encounter (principal); X50.1XXA Overexertion from prolonged static or awkward postures, initial encounter; Y93.89 Activity, other specified; Y92.89 Other specified places as the place of occurrence of the external cause; Y99.8 Other external cause status

== ENCOUNTER 2024-10-08 13:12 | Emergency (ER) | payer OTHER ==
[~2024-10-08] VITALS: Wt 54.4 kg
[2024-10-08] MEDS ORDERED: METHOCARBAMOL 500 MG TAB PO ONE (14:00)
[2024-10-08] MEDS ORDERED: Ketorolac Tromethamine 30 MG/ML VIAL IM ONE (14:00)
[2024-10-08] MEDS ORDERED: predniSONE 20 MG TAB PO ONE (14:00)
[2024-10-08] MEDS ORDERED: PREDNISONE50 MG PO (14:15)
[2024-10-08] MEDS ORDERED: METHOCARBAMOL500 M1 PO (14:15)
== END 2024-10-08 14:18 | disposition home or self-care (01) ==
LOC: ED 13:12
DX: M54.50 Low back pain, unspecified (principal); F32.A Depression, unspecified; F41.9 Anxiety disorder, unspecified

== ENCOUNTER 2024-11-03 21:46 | Emergency (ER) | payer OTHER ==
[~2024-11-03] VITALS: Ht 157.4 cm; Wt 56.7 kg
[2024-11-03 22:41] LABS: BASO # 0.0 10*3/uL (0.0-0.1); BASO % 0.6 % (0.0-1.0); EOS # 0.2 10*3/uL (0.0-0.4); EOS % 2.2 % (1.0-4.0); MEAN CELL VOLUME 100.3 fl (81.0-99.0); MEAN CORPUSCULAR HGB 33.3 pg (27.0-31.0); MEAN PLATELET VOLUME 8.7 fl (9.6-12.3); MONO # 0.5 10*3/uL (0.1-1.0); MONO % 7.1 % (3.0-9.0); NEUT # 3.8 10*3/uL (2.3-7.9); NEUT % 55.2 % (47.0-73.0); NUCLEATED RED BLOOD CELL 0.0 % (0.0-0.0); NUCLEATED RED BLOOD CELL 0.0 10*3/uL (0.0-0.0); PLATELET COUNT AUTOMATED 421 10*3/uL (130-400); RED CELL DISTRI WIDTH 11.7 % (0-14.5)
[2024-11-03 23:10] LABS: BUN 10 mg/dl (9-23)
[2024-11-04] MEDS ORDERED: POTASSIUM CHLORIDE 20 MEQ TAB PO ONE (00:05)
[2024-11-04] MEDS ORDERED: Ondansetron4 MG PO (00:08)
[2024-11-04] MEDS ORDERED: Ondansetron Hydrochloride 4 MG TAB SL ONE (00:15)
== END 2024-11-04 00:30 | disposition home or self-care (01) ==
LOC: ED 21:46
PROVIDERS: Internal Medicine
DX: R11.2 Nausea with vomiting, unspecified (principal); E87.6 Hypokalemia; D53.9 Nutritional anemia, unspecified; R25.1 Tremor, unspecified

== ENCOUNTER 2024-12-25 11:16 | Emergency (ER) | payer OTHER ==
[~2024-12-25] VITALS: Ht 157.4 cm; Wt 54.4 kg
[~2024-12-25 11:16] MED LIST changes: +Ondansetron4 MG PO
[2024-12-25] MEDS ORDERED: Acetaminophen/Oxycodone 5 MG/325 MG TABLET PO ONE (12:05)
== END 2024-12-25 13:30 | disposition home or self-care (01) ==
LOC: ED 11:16
DX: S90.32XA Contusion of left foot, initial encounter (principal); S90.122A Contusion of left lesser toe(s) without damage to nail, initial encounter; F32.A Depression, unspecified; F41.9 Anxiety disorder, unspecified; F17.200 Nicotine dependence, unspecified, uncomplicated; W50.0XXA Accidental hit or strike by another person, initial encounter; Y93.89 Activity, other specified; Y92.89 Other specified places as the place of occurrence of the external cause; Y99.8 Other external cause status

== ENCOUNTER 2025-02-13 15:50 | Emergency (ER) | payer OTHER ==
[~2025-02-13] VITALS: Ht 157.4 cm; Wt 53.5 kg
[2025-02-13] MEDS ORDERED: predniSONE 20 MG TAB PO ONE (16:10)
[2025-02-13] MEDS ORDERED: METHOCARBAMOL 750 MG TAB PO ONE (16:10)
[2025-02-13] MEDS ORDERED: diazePAM 5 MG TAB PO ONE (18:20)
[2025-02-13] MEDS ORDERED: PREDNISONE20 M1 PO (19:24)
[2025-02-13] MEDS ORDERED: METHOCARBAMOL750 M1 PO (19:24)
== END 2025-02-13 19:36 | disposition home or self-care (01) ==
LOC: ED 15:50
DX: M54.16 Radiculopathy, lumbar region (principal)

== ENCOUNTER 2025-03-18 15:56 | Emergency (ER) | payer OTHER ==
[~2025-03-18] VITALS: Ht 157.4 cm; Wt 52.2 kg
[2025-03-18] MEDS ORDERED: Acetaminophen/Oxycodone 5 MG/325 MG TABLET PO ONE (17:00)
== END 2025-03-18 18:43 | disposition home or self-care (01) ==
LOC: ED 15:56
DX: S39.012A Strain of muscle, fascia and tendon of lower back, initial encounter (principal); Z87.440 Personal history of urinary (tract) infections; W17.81XA Fall down embankment (hill), initial encounter; Y93.89 Activity, other specified; Y92.89 Other specified places as the place of occurrence of the external cause; Y99.8 Other external cause status